=== PATIENT | female | born 1975 | race Caucasian/White ===

== ENCOUNTER 2016-11-02 11:13 | Emergency (ER) | payer MEDICAID ==
[2016-11-02 11:44] VITALS: BP 147/93
--- NOTE | 2016-11-02 12:10 | EDM.PDOC ---
ED HPI GENERAL MEDICAL PROBLEM - General Chief Complaint: Neck Problem Stated Complaint: BULGING DISKS IN BACK/NUMBNESS IN HAND/ARM Time Seen by Provider: 11/02/16 11:30 Source of Information: Reports: Patient History Limitations: Reports: No Limitations - History of Present Illness INITIAL COMMENTS - FREE TEXT/NARRATIVE: History of present illness: [41-year-old female presenting to the emergency room with a history of having lived in [place] and being worked up in 2 days for a bulging cervical disc C5-C6 with radiculopathy down the right arm with progressive weakness and numbness and tingling. She is apparently supposed to be set up for some sort of an injection but she has not been back from them yet this to when that would take place. If that does not work then they're going to consider doing surgery for her. She is presenting here with increasing pain stating that she is not on any pain medications or any medications at all. I've tried to access the [place] prescription monitoring program to see if I can do anything from there but there is a problem with being able to access that program right now. She has been on gabapentin in the past for chronic pancreatitis. She's had no fevers or chills cough cold symptoms she's not any chest pain or shortness of breath.] Review of systems: As per history of present illness and below otherwise all systems reviewed and negative. Past medical history: As per history of present illness and as reviewed below otherwise noncontributory. Surgical history: As per history of present illness and as reviewed below otherwise noncontributory. Social history: No reported history of drug or alcohol abuse. Family history: As per history of present illness and as reviewed below otherwise noncontributory. Physical exam: HEENT: Atraumatic normocephalic. She does have a black eye on the right though with some ecchymoses about the right sigala. Dates she just fell recently. Pupils are equal round reactive to light extraocular movements are intact. Lungs: Clear to auscultation, breath sounds equal bilaterally, chest nontender. Heart: S1S2, regular, negative for clicks, rubs, or JVD. Abdomen: Soft, nondistended, nontender. Negative for masses or hepatosplenomegaly. Negative for costovertebral tenderness. Pelvis: Stable nontender. Genitourinary: Deferred. Rectal: Deferred. Extremities: Atraumatic, negative for cords or calf pain. Neurovascular unremarkable. Neuro: Awake, alert, oriented. In attempting to examine her upper extremities and testing the strength of her right arm as compared to her left arm there is obvious weakness but I suspect and I'm worried that she is feigning this. Diagnostics: [] Therapeutics: [] Impression: [By history she has disc disease C5-C6 with radiculopathy down the right arm.] Plan: [I'm not comfortable providing her with any narcotics I'm providing her with gabapentin 300 mg 1 by mouth 3 times a day #30 with no refills. She is moving to the area and needs to establish care with a physician here. She also needs to be able to follow-up with the physicians in [place] that she was working with this far as the injection and possible surgery if indeed this is a problem that she has.] Definitive disposition and diagnosis as appropriate pending reevaluation and review of above. Right Arm Pain Score (Numeric/FACES): 9 - Related Data Allergies Allergy/AdvReac Type Severity Reaction Status Date / Time ketorolac tromethamine Allergy Unknown Cannot Verified 05/23/15 21:51 [From Toradol] Remember fentanyl Allergy Hives Verified 05/23/15 21:51 meperidine HCl [From Demerol] Allergy Itching Verified 05/23/15 21:51 morphine Allergy Itching Verified 05/23/15 21:51 propoxyphene Allergy Itching Verified 05/23/15 21:51 tramadol Allergy Hives Verified 05/23/15 21:51 cyclobenzaprine HCl AdvReac Vomiting Verified 05/23/15 21:51 [From Flexeril] hydromorphone HCl AdvReac Itching Verified 05/23/15 21:51 [From Dilaudid] Home Meds: Home Meds Zolpidem [Ambien] 10 mg PO BEDTIME PRN 05/16/13 [History] clonazePAM [Clonazepam] 1 mg PO BEDTIME 05/16/13 [History] rOPINIRole [Requip] 2 mg PO BEDTIME 05/16/13 [History] Omeprazole [Prilosec] 20 mg PO DAILY 08/05/13 [History] Ondansetron [Zofran] 4 mg PO Q8H PRN 08/05/13 [History] Ranitidine [Zantac] 150 mg PO DAILY 12/12/14 [History] oxyCODONE 5 mg PO Q4H 12/12/14 [History] Past Medical History Cardiovascular History: Reports: [place] Gastrointestinal History: Reports: GERD, Irritable Bowel Syndrome, Pancreatitis , Other (See Below) Other Gastrointestinal History: colectomy Genitourinary History: Reports: Pyelonephritis 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 Neurological History: Reports: Migraines, Seizure Psychiatric History: Reports: ADHD, Anxiety, Bipolar, Depression, Mood Swings, PTSD, Schizophrenia Endocrine/Metabolic History: Reports: Hyperthyroidism - Past Surgical History GI Surgical History: Reports: Cholecystectomy, Colonoscopy Social & Family History - Family History Cardiac: Reports: Hypertension, [place] - Tobacco Use Smoking Status *Q: Current Every Day Smoker Years of Tobacco use: 20 Packs/Tins Daily: 0.5 Used Tobacco, but Quit: No Month Tobacco Last Used: 24 Second Hand Smoke Exposure: Yes - Caffeine Use Caffeine Use: Reports: None - Alcohol Use Days Per Week of Alcohol Use: 0 - Recreational Drug Use Recreational Drug Use: No Drug Use in Last 12 Months: No Recreational Drug Type: Reports: Cocaine, Other (see below) (pt has chronic prescription narcotic use hx) Recreational Drug Use Frequency: Not Used In Over 1 Year Recreational Drug Last Use: 13yrs ED ROS GENERAL - Review of Systems Review Of Systems: ROS reveals no pertinent complaints other than HPI. ED EXAM, UPPER BACK/NECK PAIN - Physical Exam Exam: See Below Course - Vital Signs Last Recorded V/S: Last Vital Signs Temp 35.9 C 11/02/16 11:40 Pulse 73 11/02/16 11:40 Resp 14 11/02/16 11:40 BP 147/93 H 11/02/16 11:40 Pulse Ox 94 L 11/02/16 11:40 Departure - Departure Time of Disposition: 12:09 Disposition: Home, Self-Care 01 Condition: Fair Clinical Impression: Cervical radiculopathy - Discharge Information Forms: ED Department Discharge Additional Instructions: Please make an appointment seen in clinic as soon as possible so that you can get reestablished with the medical community here and [place] your care with the physicians that were taking care of you in [place].
== END 2016-11-02 12:25 | disposition home or self-care (01) ==
LOC: JP.ED 11:13
DX: M50.122 Cervical disc disorder at C5-C6 level with radiculopathy (principal); K21.9 Gastro-esophageal reflux disease without esophagitis; I25.2 Old myocardial infarction; F31.9 Bipolar disorder, unspecified; F90.9 Attention-deficit hyperactivity disorder, unspecified type; F41.9 Anxiety disorder, unspecified; F17.210 Nicotine dependence, cigarettes, uncomplicated; E05.90 Thyrotoxicosis, unspecified without thyrotoxic crisis or storm; Z88.8 Allergy status to other drugs, medicaments and biological substances; Z79.899 Other long term (current) drug therapy; Z90.49 Acquired absence of other specified parts of digestive tract
CPT/HCPCS: 99283

== ENCOUNTER 2017-01-04 11:45 | Emergency (ER) | payer MEDICAID ==
[2017-01-04 12:18] VITALS: BP 127/89
[2017-01-04] MEDS ORDERED: Lidocaine 2% 20 ML MDV INFILT ONE (12:26)
[2017-01-04] MEDS ORDERED: Acetaminophen/oxyCODONE 325-5 MG Tab PO ONE (12:57)
--- NOTE | 2017-01-04 13:34 | EDM.PDOC ---
ED HPI GENERAL MEDICAL PROBLEM - General Chief Complaint: Skin Complaint Stated Complaint: BOIL ON INSIDE RT LEG Time Seen by Provider: 01/04/17 13:00 - Related Data Allergies Allergy/AdvReac Type Severity Reaction Status Date / Time ketorolac tromethamine Allergy Unknown Cannot Verified 01/04/17 12:20 [From Toradol] Remember fentanyl Allergy Hives Verified 01/04/17 12:20 meperidine HCl [From Demerol] Allergy Itching Verified 01/04/17 12:20 morphine Allergy Itching Verified 01/04/17 12:20 propoxyphene Allergy Itching Verified 01/04/17 12:20 tramadol Allergy Hives Verified 01/04/17 12:20 cyclobenzaprine HCl AdvReac Vomiting Verified 01/04/17 12:20 [From Flexeril] hydromorphone HCl AdvReac Itching Verified 01/04/17 12:20 [From Dilaudid] Home Meds: Home Meds Zolpidem [Ambien] 10 mg PO BEDTIME PRN 05/16/13 [History] clonazePAM [Clonazepam] 1 mg PO BEDTIME 05/16/13 [History] rOPINIRole [Requip] 2 mg PO BEDTIME 05/16/13 [History] Omeprazole [Prilosec] 20 mg PO DAILY 08/05/13 [History] Ondansetron [Zofran] 4 mg PO Q8H PRN 08/05/13 [History] Ranitidine [Zantac] 150 mg PO DAILY 12/12/14 [History] Past Medical History Cardiovascular History: Reports: [place] Gastrointestinal History: Reports: GERD, Irritable Bowel Syndrome, Pancreatitis , Other (See Below) Other Gastrointestinal History: colectomy Genitourinary History: Reports: 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 Neurological History: Reports: Migraines, Seizure Psychiatric History: Reports: ADHD, Anxiety, Bipolar, Depression, Mood Swings, PTSD, Schizophrenia Endocrine/Metabolic History: Reports: Hyperthyroidism - Past Surgical History GI Surgical History: Reports: Cholecystectomy, Colonoscopy Social & Family History - Family History Cardiac: Reports: Hypertension, [place] - Tobacco Use Smoking Status *Q: Current Every Day Smoker Years of Tobacco use: 20 Packs/Tins Daily: 1 Used Tobacco, but Quit: No Month Tobacco Last Used: 24 Second Hand Smoke Exposure: Yes - Caffeine Use Caffeine Use: Reports: None - Alcohol Use Days Per Week of Alcohol Use: 0 - Recreational Drug Use Recreational Drug Use: No Drug Use in Last 12 Months: No Recreational Drug Type: Reports: Cocaine, Other (see below) (pt has chronic prescription narcotic use hx) Recreational Drug Use Frequency: Not Used In Over 1 Year Recreational Drug Last Use: 13yrs ED ROS GENERAL - Review of Systems Review Of Systems: See Below Constitutional: Denies: Fever, Chills, Malaise, Night Sweats : Reports: Pain, Other (no pain with defacation). Denies: Discharge, Dysuria Musculoskeletal: Reports: No Symptoms ED EXAM, SKIN/RASH Exam: See Below Exam Limited By: No Limitations General Appearance: Alert, Anxious Skin: Warm, Erythema, Piercing(s), Tattoo(s), Wound/Incision, Other (well localized abscess R inner thigh in a shaved area). No: Ecchymosis Location, Skin: No: Perirectal Associated features: Warmth, Tenderness, Wwelling, Induration, Inflammation. No : Lymphangitis Lymphatic: No Adenopathy Comments: 1 x 2 cut abscess between labia and proximal thigh, tense wall, aprox. 1 cm surrounding erythema. No extension into perirectal area. ED SKIN PROCEDURES - I&D Site: R perineaum/thigh Skin Prep: Chlorhexidine (Hibiciens) Local Anesthesia: Lidocaine: 2% Plain Local Anesthetic Volume: Other (15 ml) Area Incised With: 11 Blade Drainage: Purulent, Moderate Amount, Other (foul smelling) Probed to Break Up Loculations: Yes Packed With: None Sterile Dressinx4(s) Complications: No Progress/Comments: tolerated I&D well, wound cultures sent Course - Vital Signs Last Recorded V/S: Last Vital Signs Temp 35.8 C 01/04/17 12:27 Pulse 63 01/04/17 12:27 Resp 18 01/04/17 12:27 BP 127/89 01/04/17 12:27 Pulse Ox 100 01/04/17 12:27 - Orders/Labs/Meds Orders: Active Orders 24 hr Category Date Time Status CULTURE ANAEROBIC [RM] Routine Lab 01/04/17 13:48 Received CULTURE WOUND + SMEAR [RM] Stat Lab 01/04/17 13:29 Results Meds: Medications Discontinued Medications Generic Name Dose Route Start Last Admin Trade Name Howie PRN Reason Stop Dose Admin Lidocaine HCl 20 ml 01/04/17 12:26 01/04/17 13:13 Xylocaine 2% INFILT 01/04/17 12:27 20 ml ONETIME ONE Administration Oxycodone/Acetaminophen 3 tab 01/04/17 12:57 01/04/17 13:12 Percocet 325-5 Mg PO 01/04/17 12:58 2 tab ONETIME ONE Administration Departure - Departure Time of Disposition: 13:38 Disposition: DC/Tfer to [facility] [place] [facility] Clinical Impression: Abscess - Discharge Information Instructions: Abscess, [id number] Referrals: Micah Barnard MD [Primary Care Provider] - Forms: ED Department Discharge - My Orders Last 24 Hours: My Active Orders 01/04/17 13:29 CULTURE WOUND + SMEAR [RM] Stat 01/04/17 13:48 CULTURE ANAEROBIC [RM] Routine - Assessment/Plan Last 24 Hours: My Active Orders 01/04/17 13:29 CULTURE WOUND + SMEAR [RM] Stat 01/04/17 13:48 CULTURE ANAEROBIC [RM] Routine Assessment:: cutaneous abscess likely due to ingrown hair in shaved area. History complicated by chronic pancreatitis. Plan: QID wash out with soap and water. If no improvement in 72h, or if worse, return to ED or see PCP. Will provide a SHORT course of PO oxycodone, but anticipate that pain will not persist.
== END 2017-01-04 14:10 ==
LOC: JP.ED 11:45
DX: L02.415 Cutaneous abscess of right lower limb (principal); F17.210 Nicotine dependence, cigarettes, uncomplicated; I25.2 Old myocardial infarction; K21.9 Gastro-esophageal reflux disease without esophagitis; F90.9 Attention-deficit hyperactivity disorder, unspecified type; F41.9 Anxiety disorder, unspecified; F32.9 Major depressive disorder, single episode, unspecified; G43.909 Migraine, unspecified, not intractable, without status migrainosus; Z90.49 Acquired absence of other specified parts of digestive tract; Z79.899 Other long term (current) drug therapy; Z88.8 Allergy status to other drugs, medicaments and biological substances; Z88.5 Allergy status to narcotic agent; Z88.6 Allergy status to analgesic agent
CPT/HCPCS: 10060; 87070; 87075; 87077; 87205; 99284; A9270

== ENCOUNTER 2017-01-08 17:32 | Emergency (ER) | payer MEDICAID | END 2017-01-08 17:45 | disposition left against medical advice (07) | LOC: JP.ED 17:32 | DX: Z53.21 Procedure and treatment not carried out due to patient leaving prior to being seen by health care provider (principal) ==

== ENCOUNTER 2017-03-22 15:52 | Emergency (ER) | payer MEDICAID ==
[2017-03-22] MEDS ORDERED: LORazepam 2 MG/ML MDV IVPUSH ONE (15:55)
[2017-03-22] MEDS ORDERED: diphenhydrAMINE 50 MG/ML SDV IVPUSH ONE ×2 (15:55→17:02)
[2017-03-22] MEDS ORDERED: methylPREDNISolone Sodium Succinate 125 MG/2 ML SDV IVPUSH ONE (15:55)
--- NOTE | 2017-03-22 15:59 | EDM.PDOC ---
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 She also has anxiety and felt like she couldn't breathe, tried her inhaler and it didn't seem to be working so started panicking and became very pruritic and itchy. Onset: Sudden Duration: Hour(s): (Within the past hour) Location: Reports: Face, Neck, Chest, Generalized Quality: Reports: Burning, Other (Itching) Severity: Moderate Associated Symptoms: Reports: Shortness of Breath - Related Data Allergies Allergy/AdvReac Type Severity Reaction Status Date / Time ketorolac tromethamine Allergy Unknown Cannot Verified 01/04/17 12:20 [From Toradol] Remember fentanyl Allergy Hives Verified 01/04/17 12:20 meperidine HCl [From Demerol] Allergy Itching Verified 01/04/17 12:20 morphine Allergy Itching Verified 01/04/17 12:20 propoxyphene Allergy Itching Verified 01/04/17 12:20 tramadol Allergy Hives Verified 01/04/17 12:20 cyclobenzaprine HCl AdvReac Vomiting Verified 01/04/17 12:20 [From Flexeril] hydromorphone HCl AdvReac Itching Verified 01/04/17 12:20 [From Dilaudid] Home Meds: Home Meds Zolpidem [Ambien] 10 mg PO BEDTIME PRN 05/16/13 [History] clonazePAM [Clonazepam] 1 mg PO BEDTIME 05/16/13 [History] rOPINIRole [Requip] 2 mg PO BEDTIME 05/16/13 [History] Ranitidine [Zantac] 150 mg PO DAILY 12/12/14 [History] Past Medical History Cardiovascular History: Reports: [place] Gastrointestinal History: Reports: GERD, Irritable Bowel Syndrome, Pancreatitis , Other (See Below) Other Gastrointestinal History: colectomy Genitourinary History: Reports: Pyelonephritis 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 Neurological History: Reports: Migraines, Seizure Psychiatric History: Reports: ADHD, Anxiety, Bipolar, Depression, Mood Swings, PTSD, Schizophrenia Endocrine/Metabolic History: Reports: Hyperthyroidism - Past Surgical History GI Surgical History: Reports: Cholecystectomy, Colonoscopy Social & Family History - Family History Cardiac: Reports: Hypertension, [place] - Tobacco Use Smoking Status *Q: Current Every Day Smoker Years of Tobacco use: 20 Packs/Tins Daily: 1 Used Tobacco, but Quit: No Month Tobacco Last Used: 24 Second Hand Smoke Exposure: Yes - Caffeine Use Caffeine Use: Reports: None - Alcohol Use Days Per Week of Alcohol Use: 0 - Recreational Drug Use Recreational Drug Use: No Drug Use in Last 12 Months: No Recreational Drug Type: Reports: Cocaine, Other (see below) (pt has chronic prescription narcotic use hx) Recreational Drug Use Frequency: Not Used In Over 1 Year Recreational Drug Last Use: 13yrs ED ROS GENERAL - Review of Systems Review Of Systems: See Below Constitutional: Denies: Fever, Chills Respiratory: Reports: Shortness of Breath Cardiovascular: Reports: Chest Pain GI/Abdominal: Denies: Abdominal Pain, Nausea : Reports: No Symptoms Musculoskeletal: Reports: No Symptoms Skin: Reports: Pruritis, Rash Neurological: Reports: Headache Psychiatric: Reports: Anxiety ED EXAM, GENERAL - Physical Exam Exam: See Below Exam Limited By: No Limitations General Appearance: Alert, Anxious, Mild Distress (Very agitated on arrival, scratching profusely) Eye Exam: Bilateral Eye: EOMI, Other (Patient has some very slight periorbital edema and erythema) Ears: Normal External Exam Throat/Mouth: Normal Inspection Neck: Other (Blanching hyperemic rash across the upper chest and neck) Respiratory/Chest: No Respiratory Distress, Lungs Clear Cardiovascular: Regular Rate, Rhythm GI/Abdominal: Non-Tender Extremities: Other (Diffuse hyperemic rash, blanching with several excoriation paez from scratching especially in the left leg and right arm) Skin Exam: Erythema, Rash Course - Vital Signs Last Recorded V/S: Last Vital Signs Temp 97.9 F 03/22/17 17:00 Pulse 98 03/22/17 17:00 Resp 23 H 03/22/17 17:00 BP 130/85 03/22/17 17:00 Pulse Ox 95 03/22/17 17:00 - Orders/Labs/Meds Orders: Active Orders 24 hr Category Date Time Status Saline Lock Insert [OM.PC] Routine Oth 03/22/17 15:55 Ordered Meds: Medications Discontinued Medications Generic Name Dose Route Start Last Admin Trade Name Howie PRN Reason Stop Dose Admin Acetaminophen 1,000 mg 03/22/17 16:47 03/22/17 16:53 Tylenol Extra Strength PO 03/22/17 16:48 1,000 mg ONETIME ONE Administration Diphenhydramine HCl 25 mg 03/22/17 15:55 03/22/17 16:06 Benadryl IVPUSH 03/22/17 15:56 25 mg ONETIME ONE Administration Diphenhydramine HCl 25 mg 03/22/17 17:02 03/22/17 17:07 Benadryl IVPUSH 03/22/17 17:03 25 mg ONETIME ONE Administration Lorazepam 1 mg 03/22/17 15:55 03/22/17 16:06 Ativan IVPUSH 03/22/17 15:56 1 mg ONETIME ONE Administration Methylprednisolone Sodium Succinate 125 mg 03/22/17 15:55 03/22/17 16:06 Solu-Medrol IVPUSH 03/22/17 15:56 125 mg ONETIME ONE Administration Sodium Chloride 10 ml 03/22/17 15:55 03/22/17 17:07 Saline Flush FLUSH 10 ml ASDIRECTED PRN Administration Keep Vein Open - Re-Assessments/Exams Free Text/Narrative Re-Assessment/Exam: 03/22/17 17:31 Patient was reassured that her lungs were clear, vitals were stable and her symptoms can be treated. She did start to calm down. An IV was started and she was given 25 mg of Benadryl and 1 mg of Ativan IV. This was followed with 125 mg of Solu-Medrol. After 20 minutes her respiratory rate improved and her rash started to resolve but she developed a headache and felt like the itching was starting to worsen so an additional 25 mg of Benadryl IV along with 1000 mg of oral acetaminophen was given. Patient rested quietly for 45 minutes and was discharged. Oral prednisone was given to take as an outpatient 50 mg daily for the next one to 5 days if symptoms persist. She can return anytime if worsening or concerns. She can also continue Benadryl every 4-6 hours. Departure - Departure Time of Disposition: 18:37 Disposition: Home, Self-Care 01 Condition: Good Clinical Impression: Anxiety Acute allergic reaction Qualifiers: Encounter type: initial encounter Qualified Code(s): T78.40XA - Allergy, unspecified, initial encounter - Discharge Information Instructions: Allergies Referrals: PCP,None [Primary Care Provider] - Forms: ED Department Discharge Care Plan Goals: Repeat Benadryl 25-50 mg every 4-6 hours if needed. Take 50 mg or 5 pills of prednisone with food daily until symptoms are completely resolved up to 5 days. Return or recheck in the next 2-3 days if not improving satisfactorily. - My Orders Last 24 Hours: My Active Orders 03/22/17 15:55 Saline Lock Insert [OM.PC] Routine - Assessment/Plan Last 24 Hours: My Active Orders 03/22/17 15:55 Saline Lock Insert [OM.PC] Routine
[2017-03-22] MEDS: Sodium Chloride 0.9% 10 ML Syringe FLUSH PRN ×2 (16:07→17:07)
[2017-03-22] MEDS ORDERED: Acetaminophen 500 MG Tab PO ONE (16:47)
[2017-03-22 17:01] VITALS: BP 130/85
== END 2017-03-22 18:37 | disposition home or self-care (01) ==
LOC: JP.ED 15:52
DX: T78.40XA Allergy, unspecified, initial encounter (principal); F41.9 Anxiety disorder, unspecified; F17.210 Nicotine dependence, cigarettes, uncomplicated; Z88.5 Allergy status to narcotic agent; Z88.6 Allergy status to analgesic agent; Z88.8 Allergy status to other drugs, medicaments and biological substances
CPT/HCPCS: 96374; 96375; 96376; 99283; 99284; A9270; J1200; J2060; J2930; J7050

== ENCOUNTER 2017-03-24 17:06 | Emergency (ER) | payer MEDICAID ==
[2017-03-24] MEDS ORDERED: LORazepam 2 MG/ML MDV IVPUSH ONE ×2 (17:28→17:53)
[2017-03-24] MEDS ORDERED: Lactated Ringers 1,000 ML IV ONE (17:28)
--- NOTE | 2017-03-24 17:33 | EDM.PDOC ---
<Panfilo Stuart - Last Filed: 03/24/17 18:56> ED HPI GENERAL MEDICAL PROBLEM - General Chief Complaint: General Stated Complaint: SEIZURE ACTIVITY Time Seen by Provider: 03/24/17 17:20 Source of Information: Reports: Patient, Family, Old Records, RN History Limitations: Reports: Other (patient having a hard time communicating.) - History of Present Illness INITIAL COMMENTS - FREE TEXT/NARRATIVE: 41 yo female with a pHx of chronic neck pain presents with shaking, neck pain, and CARLSON. Had been having mild shaking intermittently for a couple days. Much worse since noon today. Fell last night after leaving the ER and may have re- injured her neck. Now can't stop shaking. Hard for her to speak. No known fever. Was at work when this began today. Onset: Today Onset Date: 03/24/17 Onset Time: 12:00 Duration: Hour(s): Location: Reports: Generalized Quality: Reports: Ache Severity: Moderate Improves with: Reports: None Worsens with: Reports: Other (? time) Context: Reports: Other (Hx of neck pain, fall last night. No hx of seizure. ) Associated Symptoms: Reports: Headaches, Seizure (generalized tremoring), Other (sweaty, speach difficulty.). 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) - Related Data Allergies Allergy/AdvReac Type Severity Reaction Status Date / Time ketorolac tromethamine Allergy Unknown Cannot Verified 01/04/17 12:20 [From Toradol] Remember fentanyl Allergy Hives Verified 01/04/17 12:20 meperidine HCl [From Demerol] Allergy Itching Verified 01/04/17 12:20 morphine Allergy Itching Verified 01/04/17 12:20 propoxyphene Allergy Itching Verified 01/04/17 12:20 tramadol Allergy Hives Verified 01/04/17 12:20 cyclobenzaprine HCl AdvReac Vomiting Verified 01/04/17 12:20 [From Flexeril] hydromorphone HCl AdvReac Itching Verified 01/04/17 12:20 [From Dilaudid] Home Meds: Home Meds Zolpidem [Ambien] 10 mg PO BEDTIME PRN 01/19/14 [History] clonazePAM [Clonazepam] 1 mg PO BEDTIME 05/16/13 [History] rOPINIRole [Requip] 2 mg PO BEDTIME 05/16/13 [History] Ranitidine [Zantac] 150 mg PO DAILY 12/12/14 [History] Gabapentin [Neurontin] 300 mg PO TID 03/24/17 [History] LORazepam 1 mg PO TID PRN #10 tablet 03/24/17 [Rx] oxyCODONE 5 mg PO Q4H PRN #8 tab 03/24/17 [Rx] Past Medical History HEENT History: Reports: Otitis Media, Sinusitis Cardiovascular History: Reports: [place] Respiratory History: Reports: Asthma Gastrointestinal History: Reports: GERD, Irritable Bowel Syndrome, Pancreatitis , Other (See Below) Other Gastrointestinal History: colectomy Genitourinary History: Reports: Pyelonephritis 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 Neurological History: Reports: Migraines, Seizure Psychiatric History: Reports: ADHD, Anxiety, Bipolar, Depression, Mood Swings, PTSD, Schizophrenia Endocrine/Metabolic History: Reports: Hyperthyroidism Dermatologic History: Reports: Eczema - Infectious Disease History Infectious Disease History: Reports: Chicken Pox - Past Surgical History HEENT Surgical History: Reports: Tonsillectomy GI Surgical History: Reports: Cholecystectomy, Colonoscopy Social & Family History - Family History Cardiac: Reports: Hypertension, [place] - Tobacco Use Smoking Status *Q: Current Every Day Smoker Years of Tobacco use: 30 Packs/Tins Daily: 1 Used Tobacco, but Quit: No Month Tobacco Last Used: 24 Second Hand Smoke Exposure: Yes - Caffeine Use Caffeine Use: Reports: Coffee, Energy Drinks - Alcohol Use Days Per Week of Alcohol Use: 0 - Recreational Drug Use Recreational Drug Use: No Drug Use in Last 12 Months: No Recreational Drug Type: Reports: Cocaine, Other (see below) (pt has chronic prescription narcotic use hx) Recreational Drug Use Frequency: Not Used In Over 1 Year Recreational Drug Last Use: 13yrs ED ROS GENERAL - Review of Systems Review Of Systems: See Below Constitutional: Reports: Diaphoresis. Denies: Fever HEENT: Reports: No Symptoms Respiratory: Reports: No Symptoms Cardiovascular: Reports: No Symptoms Endocrine: Reports: No Symptoms GI/Abdominal: Reports: No Symptoms : Reports: No Symptoms Musculoskeletal: Reports: Neck Pain Skin: Reports: Diaphoresis Neurological: Reports: Headache Psychiatric: Reports: No Symptoms ED EXAM, GENERAL - Physical Exam Exam: See Below Exam Limited By: No Limitations General Appearance: Alert, Moderate Distress Eye Exam: Bilateral Eye: Normal Inspection Ears: Normal External Exam, Normal Canal, Hearing Grossly Normal, Normal TMs Ear Exam: Bilateral Ear: Auricle Normal, Canal Normal, TM normal Nose: Normal Inspection Throat/Mouth: Normal Inspection, Normal Lips, Normal Oropharynx, Normal Voice, No Airway Compromise Head: Atraumatic, Normocephalic Neck: Normal Inspection Respiratory/Chest: No Respiratory Distress, Lungs Clear, Normal Breath Sounds, No Accessory Muscle Use Cardiovascular: Regular Rate, Rhythm, Tachycardia GI/Abdominal: Normal Bowel Sounds, Soft, Non-Tender, No Distention Back Exam: Normal Inspection. No: CVA Tenderness (R), CVA Tenderness (L) Extremities: Normal Inspection, Normal Range of Motion, Non-Tender, No Pedal Edema Neurological: Alert, Other (constant total body tremors, speech difficult to understand. ) Skin Exam: Warm, Intact, Normal Color, No Rash, Diaphoretic (sweaty). No: Erythema, Jaundice, Mottled, Pallor, Petechiae, Rash, Wound/Incision Lymphatic: No Adenopathy Course - Vital Signs Text/Narrative:: Anesthesia called for an LP at 1850h Last Recorded V/S: Last Vital Signs Temp 37.1 C 03/24/17 17:21 Pulse 100 03/24/17 22:25 Resp 18 03/24/17 22:25 BP 127/68 03/24/17 22:25 Pulse Ox 95 03/24/17 22:25 - Orders/Labs/Meds Orders: Active Orders 24 hr Category Date Time Status Cervical Spine wo Cont [CT] Stat Exams 03/24/17 17:35 Taken Head wo Cont [CT] Stat Exams 03/24/17 17:31 Taken CULTURE BLOOD [BC] Stat Lab 03/24/17 18:00 Received CULTURE BLOOD [BC] Stat Lab 03/24/17 18:10 Received CULTURE CSF + SMEAR [RM] Stat Lab 03/24/17 20:07 Results Labs: Laboratory Tests 03/24/17 03/24/17 03/24/17 Range/Units 17:40 17:40 17:40 WBC 19.3 H (4.5-11.0) K/uL RBC 4.73 (3.30-5.50) M/uL Hgb 14.3 (12.0-15.0) g/dL Hct 43.3 (36.0-48.0) % MCV 92 (80-98) fL MCH 30 (27-31) pg MCHC 33 (32-36) % Plt Count 364 (150-400) K/uL Sodium 142 (140-148) mmol/L Potassium 4.2 (3.6-5.2) mmol/L Chloride 104 (100-108) mmol/L Carbon Dioxide 23 (21-32) mmol/L Anion Gap 15.1 H (5.0-14.0) mmol/L BUN 26 H (7-18) mg/dL Creatinine 1.1 H (0.6-1.0) mg/dL Est Cr Clr Drug Dosing 62.41 mL/min Estimated GFR (MDRD) 55 L (>60) Glucose 164 H (74-106) mg/dL Lactic Acid 3.1 H (0.4-2.0) mmol/L Calcium 9.5 (8.5-10.1) mg/dL Total Bilirubin (0.2-1.0) mg/dL Direct Bilirubin (0.0-0.2) mg/dL Indirect Bilirubin AST (15-37) U/L ALT (12-78) U/L Alkaline Phosphatase (46-116) U/L Total Protein (6.4-8.2) g/dL Albumin (3.4-5.0) g/dL Globulin (2.3-3.5) g/dL Albumin/Globulin Ratio (1.2-2.2) Urine Color Urine Appearance Urine pH (4.5-8.0) Ur Specific [place] (1.008-1.030) Urine Protein (NEGATIVE) mg/dL Urine Glucose (UA) (NEGATIVE) mg/dL Urine Ketones (NEGATIVE) mg/dL Urine Occult Blood (NEGATIVE) Urine Nitrite (NEGATIVE) Urine Bilirubin (NEGATIVE) Urine Urobilinogen (NORMAL) mg/dL Ur Leukocyte Esterase (NEGATIVE) Urine RBC (0-5) Urine WBC (0-5) Ur Epithelial Cells Amorphous Sediment Urine Bacteria Urine Mucus CSF Tube Number CSF Volume mls CSF Appearance (CLEAR) CSF Color (COLORLESS) CSF WBC (0-5) /ul CSF RBC (0-0) /ul CSF Mononuclear Cells (54-100) % CSF Polymorphonuclear (0-7) % CSF Glucose (40-70) mg/dL CSF Total Protein (15-45) mg/dL Urine Opiates Screen (NEGATIVE) Ur Oxycodone Screen (NEGATIVE) Urine Methadone Screen (NEGATIVE) Ur Propoxyphene Screen (NEGATIVE) Ur Barbiturates Screen (NEGATIVE) Ur Tricyclics Screen (NEGATIVE) Ur Phencyclidine Scrn (NEGATIVE) Ur Amphetamine Screen (NEGATIVE) U Methamphetamines Scrn (NEGATIVE) Urine MDMA Screen (NEGATIVE) U Benzodiazepines Scrn (NEGATIVE) U Cocaine Metab Screen (NEGATIVE) U Marijuana (THC) Screen (NEGATIVE) Ethyl Alcohol mg/dL 03/24/17 03/24/17 03/24/17 Range/Units 17:40 18:24 18:24 WBC (4.5-11.0) K/uL RBC (3.30-5.50) M/uL Hgb (12.0-15.0) g/dL Hct (36.0-48.0) % MCV (80-98) fL MCH (27-31) pg MCHC (32-36) % Plt Count (150-400) K/uL Sodium (140-148) mmol/L Potassium (3.6-5.2) mmol/L Chloride (100-108) mmol/L Carbon Dioxide (21-32) mmol/L Anion Gap (5.0-14.0) mmol/L BUN (7-18) mg/dL Creatinine (0.6-1.0) mg/dL Est Cr Clr Drug Dosing mL/min Estimated GFR (MDRD) (>60) Glucose (74-106) mg/dL Lactic Acid (0.4-2.0) mmol/L Calcium (8.5-10.1) mg/dL Total Bilirubin (0.2-1.0) mg/dL Direct Bilirubin (0.0-0.2) mg/dL Indirect Bilirubin AST (15-37) U/L ALT (12-78) U/L Alkaline Phosphatase (46-116) U/L Total Protein (6.4-8.2) g/dL Albumin (3.4-5.0) g/dL Globulin (2.3-3.5) g/dL Albumin/Globulin Ratio (1.2-2.2) Urine Color Yellow Urine Appearance Clear Urine pH 5.0 (4.5-8.0) Ur Specific [place] 1.030 (1.008-1.030) Urine Protein Negative (NEGATIVE) mg/dL Urine Glucose (UA) Normal (NEGATIVE) mg/dL Urine Ketones Negative (NEGATIVE) mg/dL Urine Occult Blood Negative (NEGATIVE) Urine Nitrite Negative (NEGATIVE) Urine Bilirubin Negative (NEGATIVE) Urine Urobilinogen Normal (NORMAL) mg/dL Ur Leukocyte Esterase Negative (NEGATIVE) Urine RBC 0-5 (0-5) Urine WBC 0-5 (0-5) Ur Epithelial Cells Moderate Amorphous Sediment Not seen Urine Bacteria Moderate Urine Mucus Few CSF Tube Number CSF Volume mls CSF Appearance (CLEAR) CSF Color (COLORLESS) CSF WBC (0-5) /ul CSF RBC (0-0) /ul CSF Mononuclear Cells (54-100) % CSF Polymorphonuclear (0-7) % CSF Glucose (40-70) mg/dL CSF Total Protein (15-45) mg/dL Urine Opiates Screen Negative (NEGATIVE) Ur Oxycodone Screen Negative (NEGATIVE) Urine Methadone Screen Negative (NEGATIVE) Ur Propoxyphene Screen Negative (NEGATIVE) Ur Barbiturates Screen Negative (NEGATIVE) Ur Tricyclics Screen Negative (NEGATIVE) Ur Phencyclidine Scrn Negative (NEGATIVE) Ur Amphetamine Screen Negative (NEGATIVE) U Methamphetamines Scrn Negative (NEGATIVE) Urine MDMA Screen Negative (NEGATIVE) U Benzodiazepines Scrn Positive H (NEGATIVE) U Cocaine Metab Screen Negative (NEGATIVE) U Marijuana (THC) Screen Negative (NEGATIVE) Ethyl Alcohol < 3 mg/dL 03/24/17 03/24/17 03/24/17 Range/Units 20:00 20:07 20:07 WBC (4.5-11.0) K/uL RBC (3.30-5.50) M/uL Hgb (12.0-15.0) g/dL Hct (36.0-48.0) % MCV (80-98) fL MCH (27-31) pg MCHC (32-36) % Plt Count (150-400) K/uL Sodium (140-148) mmol/L Potassium (3.6-5.2) mmol/L Chloride (100-108) mmol/L Carbon Dioxide (21-32) mmol/L Anion Gap (5.0-14.0) mmol/L BUN (7-18) mg/dL Creatinine (0.6-1.0) mg/dL Est Cr Clr Drug Dosing mL/min Estimated GFR (MDRD) (>60) Glucose (74-106) mg/dL Lactic Acid (0.4-2.0) mmol/L Calcium (8.5-10.1) mg/dL Total Bilirubin 0.4 D (0.2-1.0) mg/dL Direct Bilirubin 0.14 (0.0-0.2) mg/dL Indirect Bilirubin 0.26 AST 48 H D (15-37) U/L ALT 521 H (12-78) U/L Alkaline Phosphatase 56 (46-116) U/L Total Protein 7.6 (6.4-8.2) g/dL Albumin 4.1 (3.4-5.0) g/dL Globulin 3.5 (2.3-3.5) g/dL Albumin/Globulin Ratio 1.2 (1.2-2.2) Urine Color Urine Appearance Urine pH (4.5-8.0) Ur Specific [place] (1.008-1.030) Urine Protein (NEGATIVE) mg/dL Urine Glucose (UA) (NEGATIVE) mg/dL Urine Ketones (NEGATIVE) mg/dL Urine Occult Blood (NEGATIVE) Urine Nitrite (NEGATIVE) Urine Bilirubin (NEGATIVE) Urine Urobilinogen (NORMAL) mg/dL Ur Leukocyte Esterase (NEGATIVE) Urine RBC (0-5) Urine WBC (0-5) Ur Epithelial Cells Amorphous Sediment Urine Bacteria Urine Mucus CSF Tube Number 2 CSF Volume 2 mls CSF Appearance Clear (CLEAR) CSF Color Colorless (COLORLESS) CSF WBC 1 (0-5) /ul CSF RBC 1 H (0-0) /ul CSF Mononuclear Cells 1 L (54-100) % CSF Polymorphonuclear 0 (0-7) % CSF Glucose 82 H (40-70) mg/dL CSF Total Protein 32.4 (15-45) mg/dL Urine Opiates Screen (NEGATIVE) Ur Oxycodone Screen (NEGATIVE) Urine Methadone Screen (NEGATIVE) Ur Propoxyphene Screen (NEGATIVE) Ur Barbiturates Screen (NEGATIVE) Ur Tricyclics Screen (NEGATIVE) Ur Phencyclidine Scrn (NEGATIVE) Ur Amphetamine Screen (NEGATIVE) U Methamphetamines Scrn (NEGATIVE) Urine MDMA Screen (NEGATIVE) U Benzodiazepines Scrn (NEGATIVE) U Cocaine Metab Screen (NEGATIVE) U Marijuana (THC) Screen (NEGATIVE) Ethyl Alcohol mg/dL 03/24/17 03/24/17 Range/Units 22:00 22:00 WBC (4.5-11.0) K/uL RBC (3.30-5.50) M/uL Hgb (12.0-15.0) g/dL Hct (36.0-48.0) % MCV (80-98) fL MCH (27-31) pg MCHC (32-36) % Plt Count (150-400) K/uL Sodium 141 (140-148) mmol/L Potassium 4.0 (3.6-5.2) mmol/L Chloride 105 (100-108) mmol/L Carbon Dioxide 20 L (21-32) mmol/L Anion Gap 20.0 H (5.0-14.0) mmol/L BUN 21 H (7-18) mg/dL Creatinine 1.0 (0.6-1.0) mg/dL Est Cr Clr Drug Dosing 68.65 mL/min Estimated GFR (MDRD) > 60 (>60) Glucose 213 H (74-106) mg/dL Lactic Acid 2.6 H (0.4-2.0) mmol/L Calcium 8.5 (8.5-10.1) mg/dL Total Bilirubin (0.2-1.0) mg/dL Direct Bilirubin (0.0-0.2) mg/dL Indirect Bilirubin AST (15-37) U/L ALT (12-78) U/L Alkaline Phosphatase (46-116) U/L Total Protein (6.4-8.2) g/dL Albumin (3.4-5.0) g/dL Globulin (2.3-3.5) g/dL Albumin/Globulin Ratio (1.2-2.2) Urine Color Urine Appearance Urine pH (4.5-8.0) Ur Specific [place] (1.008-1.030) Urine Protein (NEGATIVE) mg/dL Urine Glucose (UA) (NEGATIVE) mg/dL Urine Ketones (NEGATIVE) mg/dL Urine Occult Blood (NEGATIVE) Urine Nitrite (NEGATIVE) Urine Bilirubin (NEGATIVE) Urine Urobilinogen (NORMAL) mg/dL Ur Leukocyte Esterase (NEGATIVE) Urine RBC (0-5) Urine WBC (0-5) Ur Epithelial Cells Amorphous Sediment Urine Bacteria Urine Mucus CSF Tube Number CSF Volume mls CSF Appearance (CLEAR) CSF Color (COLORLESS) CSF WBC (0-5) /ul CSF RBC (0-0) /ul CSF Mononuclear Cells (54-100) % CSF Polymorphonuclear (0-7) % CSF Glucose (40-70) mg/dL CSF Total Protein (15-45) mg/dL Urine Opiates Screen (NEGATIVE) Ur Oxycodone Screen (NEGATIVE) Urine Methadone Screen (NEGATIVE) Ur Propoxyphene Screen (NEGATIVE) Ur Barbiturates Screen (NEGATIVE) Ur Tricyclics Screen (NEGATIVE) Ur Phencyclidine Scrn (NEGATIVE) Ur Amphetamine Screen (NEGATIVE) U Methamphetamines Scrn (NEGATIVE) Urine MDMA Screen (NEGATIVE) U Benzodiazepines Scrn (NEGATIVE) U Cocaine Metab Screen (NEGATIVE) U Marijuana (THC) Screen (NEGATIVE) Ethyl Alcohol mg/dL Meds: Medications Discontinued Medications Generic Name Dose Route Start Last Admin Trade Name Freq PRN Reason Stop Dose Admin Diphenhydramine HCl 50 mg 03/24/17 20:51 03/24/17 21:14 Benadryl IVPUSH 03/24/17 20:52 50 mg ONETIME ONE Administration Lactated Ringer's 1,000 mls @ 1,000 mls/hr 03/24/17 17:28 03/24/17 17:47 Ringers, Lactated IV 03/24/17 18:27 1,000 mls/hr BOLUS ONE Administration Ceftriaxone Sodium 2 gm/ 50 mls @ 100 mls/hr 03/24/17 17:49 03/24/17 18:34 Sodium Chloride IV 03/24/17 18:18 100 mls/hr ONETIME ONE Administration Sodium Chloride 1,000 mls @ 1,000 mls/hr 03/24/17 18:15 03/24/17 19:23 Normal Saline IV 1,000 mls/hr ASDIRECTED JOSE M Administration Acetaminophen 1,000 mg/ Premix 100 mls @ 400 mls/hr 03/24/17 18:37 03/24/17 18:57 IV 03/24/17 18:51 400 mls/hr NOW ONE Administration Sodium Chloride 1,000 mls @ 900 mls/hr 03/24/17 21:00 03/24/17 21:12 Normal Saline IV 900 mls/hr ASDIRECTED JOSE M Administration Lorazepam 1 mg 03/24/17 17:28 03/24/17 17:47 Ativan IVPUSH 03/24/17 17:29 1 mg ONETIME ONE Administration Lorazepam 1 mg 03/24/17 17:53 03/24/17 17:55 Ativan IVPUSH 03/24/17 17:54 1 mg ONETIME ONE Administration Morphine Sulfate 4 mg 03/24/17 20:51 03/24/17 21:16 Morphine IVPUSH 03/24/17 20:52 4 mg ONETIME ONE Administration Olanzapine 5 mg 03/24/17 22:37 03/24/17 23:04 Zyprexa PO 03/24/17 22:38 5 mg ONETIME ONE Administration Departure - Departure Disposition: Home, Self-Care 01 Clinical Impression: Chronic neck pain, Elevated ALT measurement, Tremors of nervous system Fall with injury Qualifiers: Encounter type: initial encounter Qualified Code(s): W19.XXXA - Unspecified fall, initial encounter - Discharge Information Prescriptions: LORazepam 1 mg PO TID PRN #10 tablet PRN Reason: cramps, tremors or spasms oxyCODONE 5 mg PO Q4H PRN #8 tab PRN Reason: moderate neck or head pain Instructions: Alanine Aminotransferase Test, Lumbar Puncture, Care After, Tremor Referrals: Micah Barnard MD [Primary Care Provider] - Forms: ED Department Discharge, ED Return to Work/School Form Additional Instructions: there are several concerns about your health that need further investigation. #1, chronic neck pain, made worse by your fall yesterday. you may need referral for further treatment and evaluation. #2 tremors or convulsions that are associated with your pain. these started after your neck injury in September, worse with a fall yesterday. Further evaluation might include referral to neurology. #3 elevated ALTs, one of the liver enzymes. Further testing for causes of elevated liver enzymes should be done if this has not been done already, if the liver nzymes remain elevated. for example testing for hepatitis. Sometimes medications can also cause elevated liver enzymes as can alcohol. #4. Tonight you had elevated lactate. This would suggest possible dehydration or infection, improved with intravenous fluids. Make sure you drink plenty of fluids.you also had elevated white count. Your blood count can be elevated for many reasons, possibly the prednisone your prescribed for the allergic reaction is contributing to this. This will need to be rechecked at some point. You are being prescribed medication for your tremors and pain tonight. This is for short-term use only. Make an appointment with your physician in the next week to get rechecked, to discuss these problems, and to get referrals as needed - My Orders Last 24 Hours: My Active Orders 03/24/17 20:07 CULTURE CSF + SMEAR [RM] Stat - Assessment/Plan Last 24 Hours: My Active Orders 03/24/17 20:07 CULTURE CSF + SMEAR [RM] Stat <Toni Padilla - Last Filed: 03/24/17 23:45> Course - Re-Assessments/Exams Free Text/Narrative Re-Assessment/Exam: 03/24/17 22:20 22.00 transferred to my care from Dr. Stuart, see note above 41-year-old female who presented to emergency because of tremors headache and neck pain. She fell at her friend's house where she's been staying temporarily at noon yesterday. She lost her balance was feeling dizzy missed the last few steps landed on some cultures at the bottom of stairs and landed on the floor. She was confused by head and it's unclear if she had she had loss of consciousness or even a head injury. However she did get sudden increase in neck and head pain. She went to sleep and when she woke up this morning she felt no better. Her fianc, who came in with her tonight, arrived home in the afternoon today and found her with "full-blown convulsions". No loss of consciousness with her tremors. These continued in emergency and were witnessed by the staff here. In addition she was noted to have tachycardia and elevated blood pressure. 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 She had taken package of bowel water and swallowed through the scanner and had immediate pain in her upper back, that radiated up to her neck.. The next morning she hadmore intense pain in her neck and back and started experiencing "convulsions". She was seen several times in emergency at [place]. Ultimately she did have an MRI of her neck and did have an injection in her neck as well. Apparently it was not felt to be a workers comp related claim. She was seen in emergency 2 days ago for an allergic type reaction or hayfever and since then she's felt unwell with which she describes as dizziness meaning feeling off balance. She is being treated with prednisone and with antihistamines. On evaluation in emergency tonight it was found that her white count was 19.3 versus 14.5 in January. She was given ceftriaxone IV Apart from her congestive symptoms from 2 days ago, there is no cough no urinary tract symptoms no nausea vomiting or diarrhea. Liver tests show elevated ELT at 521 mild elevation in AST at 48, these values were normal in January. She continues to complain of headache and neck pain She had received intravenous acetaminophen and lorazepam prior to my assessing her. CT of the head and of the neck were negative for acute changes. In addition she underwent lumbar puncture to evaluate her for possible infection , the results do not support the diagnosis of infection. When I assessed her she was alert and coherent and able to answer questions and follow directions. She did show some tremor which abated without treatment. She continues to have neck and back pain. The only other significant lab finding is of a lactate of 3.1 She did receive intravenous saline in emergency For headache and neck pain she received 4 morphine 4 mg and Benadryl 50 mg IV new discomfort across the low back, becoming more focal in the left low back. Zyprexa 5 mg by mouth for pain and discomfort in the help her rest Repeat lactate 2.6 there are several concerns about your health that need further investigation. #1, chronic neck pain, made worse by your fall yesterday. you may need referral for further treatment and evaluation. #2 tremors or convulsions that are associated with your pain. these started after your neck injury in September, worse with a fall yesterday. Further evaluation might include referral to neurology. #3 elevated ALTs, one of the liver enzymes. Further testing for causes of elevated liver enzymes should be done if this has not been done already, if the liver nzymes remain elevated. for example testing for hepatitis. Sometimes medications can also cause elevated liver enzymes as can alcohol. #4. Tonight you had elevated lactate. This would suggest possible dehydration or infection, improved with intravenous fluids. Make sure you drink plenty of fluids.you also had elevated white count. Your blood count can be elevated for many reasons, possibly the prednisone your prescribed for the allergic reaction is contributing to this. This will need to be rechecked at some point. You are being prescribed medication for your tremors and pain tonight. This is for short-term use only. Make an appointment with your physician in the next week to get rechecked, to discuss these problems, and to get referrals as needed 03/24/17 23:44 Departure - Departure Time of Disposition: 22:55 Condition: Fair
[2017-03-24] MEDS ORDERED: cefTRIAXone 2 GM in Sodium Chloride 0.9% 50 ML IV ONE (17:49)
[2017-03-24] MEDS ORDERED: Sodium Chloride 0.9% 1,000 ML IV SCH ×2 (18:15→21:00)
[2017-03-24] MEDS ORDERED: Acetaminophen 1,000 MG in Premix Bag 1 BAG IV ONE (18:37)
[2017-03-24] MEDS ORDERED: diphenhydrAMINE 50 MG/ML SDV IVPUSH ONE (20:51)
[2017-03-24] MEDS ORDERED: Morphine 4 MG/ML Syringe IVPUSH ONE (20:51)
[2017-03-24 22:26] VITALS: BP 127/68
[2017-03-24] MEDS ORDERED: OLANZapine 5 MG Tab PO ONE (22:37)
--- NOTE | 2017-03-25 01:30 | ANES ---
DATE OF SERVICE: 03/24/2017 TIME: 1900 hours. INDICATIONS: I was called by Dr. Padilla to evaluate Ms. Salinas for a lumbar puncture. This is a lady who came to the emergency room with some seizure activity earlier as well as headaches of unknown origin. He would like to do a lumbar puncture to evaluate her for meningitis. The risks and benefits of the procedure were explained to the patient and she wished to proceed with a lumbar puncture. DESCRIPTION OF THE PROCEDURE: She was placed in the left lateral decubitus position. I prepped her back with Betadine x3 and 1% lidocaine skin local was used. I placed a 25-gauge Pencan needle to the L4-5 interspace. There was positive CSF, which was clear and no blood was noted. I did initially obtain a pressure which was 21 cm of water. This fluid was then collected into tube #1. I did collect the remaining tubes for a total of 4 with 1 mL each of cerebrospinal fluid. These were labeled and sent to the lab. I removed the needle and placed a Band-Aid on her back and she tolerated the procedure very nicely. There were no anesthesia complications noted and the nurse was with me the entire procedure. José Silva CRNA /[id number]
== END 2017-03-24 23:28 | disposition home or self-care (01) ==
LOC: JP.ED 17:06
DX: R25.1 Tremor, unspecified (principal); M54.2 Cervicalgia; G89.29 Other chronic pain; R74.0 Nonspecific elevation of levels of transaminase and lactic acid dehydrogenase [LDH]; T14.8XXA Other injury of unspecified body region, initial encounter; F17.210 Nicotine dependence, cigarettes, uncomplicated; F31.9 Bipolar disorder, unspecified; Z79.899 Other long term (current) drug therapy; Z88.5 Allergy status to narcotic agent; Z88.6 Allergy status to analgesic agent; W19.XXXA Unspecified fall, initial encounter
CPT/HCPCS: 36415; 70450; 72125; 80048; 80076; 80305; 81001; 82945; 83605; 84157; 85027; 87040; 87070; 87205; 89050; 96361; 96365; 96375; 99285; A9270; G0480; J0131; J0696; J1200; J2060; J2270; J7040; J7050; J7120

== ENCOUNTER 2017-03-31 20:38 | Emergency (ER) | payer MEDICAID ==
[2017-03-31] MEDS ORDERED: diphenhydrAMINE 50 MG/ML SDV IVPUSH ONE (20:55)
[2017-03-31] MEDS ORDERED: Sodium Chloride 0.9% 10 ML Syringe FLUSH PRN (20:55)
[2017-03-31] MEDS ORDERED: Sodium Chloride 0.9% 1,000 ML IV SCH (21:00)
[2017-03-31] MEDS ORDERED: Midazolam 1 MG/ML 5 ML SDV IVPUSH ONE ×2 (21:13→21:43)
--- NOTE | 2017-03-31 22:16 | EDM.PDOC ---
ED HPI GENERAL MEDICAL PROBLEM - General Chief Complaint: Neuro Symptoms/Deficits Stated Complaint: SEIZURES Time Seen by Provider: 03/31/17 21:09 Source of Information: Reports: Family (Sandro), Old Records, RN Notes Reviewed History Limitations: Reports: Other (Convulsions, very difficult to talk) - History of Present Illness INITIAL COMMENTS - FREE TEXT/NARRATIVE: 41-year-old female, brought in by her , she's been having increasingly frequent "convulsions". 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 She had significant and immediate neck pain and spasms later followed by recurrent convulsions. Since then she's been seen at several hospitals including [facility], would deal with these episodes of convulsions associated with neck pain. She's also had cervical anesthetic injection into which did help with her neck pain for some time but did not controlled the convulsions. She does have a history of bipolar disorder and ADHD. 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 No recent psychiatric admission She has been on her medication as listed below. Her earlier episodes of convulsions were not associated with loss of consciousness but with the more recent episodes especially in the last 4 days, she's been unable to speak with the spells. She was seen this afternoon in [place], [place] states they were shopping where. Shortly afternoon she started having the spells and they didn't stop, they finally had to give her diazepam and Benadryl IV, she also received some pain medication at discharge for her neck pain. states it was hydromorphone. She felt recently well in the late afternoon and had dinner earlier this evening. They were staying at a hotel. She apparently was served some legal papers, the company surveying the papers contacted her by phone, and then she started having another episode of convulsions, over an hour by the time she arrived here When she arrived she was curled up in the car, her neck extended and bent to the left and she had spasms of her mouth that she was unable to talk and she had tension in her legs and arms rather than true spasms more like clonic contractions with tremors. She was able to open her eyes spontaneously but unable to speak. She's never had incontinence or tongue wound or any significant injuries from any the convulsions. She was given Benadryl here intravenously without any response. She settled down with thousand 15 mg IV which was repeated for continuing spasm and tremors in the first dose was starting to wear off. She is now resting comfortably and is able to respond to questions appropriately. Generalized Pain Score (Numeric/FACES): 8 - Related Data Allergies Allergy/AdvReac Type Severity Reaction Status Date / Time ketorolac tromethamine Allergy Unknown Cannot Verified 03/31/17 21:14 [From Toradol] Remember fentanyl Allergy Hives Verified 03/31/17 21:14 meperidine HCl [From Demerol] Allergy Itching Verified 03/31/17 21:14 morphine Allergy Itching Verified 03/31/17 21:14 propoxyphene Allergy Itching Verified 03/31/17 21:14 tramadol Allergy Hives Verified 03/31/17 21:14 cyclobenzaprine HCl AdvReac Vomiting Verified 03/31/17 21:14 [From Flexeril] hydromorphone HCl AdvReac Itching Verified 03/31/17 21:14 [From Dilaudid] Home Meds: Home Meds Zolpidem [Ambien] 10 mg PO BEDTIME PRN 05/16/13 [History] clonazePAM [Clonazepam] 1 mg PO BEDTIME 05/16/13 [History] rOPINIRole [Requip] 2 mg PO BEDTIME 05/16/13 [History] Gabapentin [Neurontin] 300 mg PO TID 03/24/17 [History] Cyclobenzaprine [Flexeril] 10 mg PO TID PRN 03/31/17 [History] EPINEPHrine [Epipen] 0.3 mg IM ASDIRECTED 03/31/17 [History] FLUoxetine [PROzac] 20 mg PO DAILY 03/31/17 [History] Ondansetron [Zuplenz] 4 mg PO Q8HR PRN 03/31/17 [History] Pantoprazole [ProTONIX] 40 mg PO ACBREAKFAST 03/31/17 [History] Past Medical History HEENT History: Reports: Otitis Media, Sinusitis Cardiovascular History: Reports: [place] Respiratory History: Reports: Asthma Gastrointestinal History: Reports: GERD, Irritable Bowel Syndrome, Pancreatitis , Other (See Below) Other Gastrointestinal History: colectomy Genitourinary History: Reports: Pyelonephritis 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 Neurological History: Reports: Migraines, Seizure Psychiatric History: Reports: ADHD, Anxiety, Bipolar, Depression, Mood Swings, PTSD, Schizophrenia Endocrine/Metabolic History: Reports: Hyperthyroidism Dermatologic History: Reports: Eczema - Infectious Disease History Infectious Disease History: Reports: Chicken Pox - Past Surgical History HEENT Surgical History: Reports: Tonsillectomy GI Surgical History: Reports: Cholecystectomy, Colonoscopy Social & Family History - Family History Cardiac: Reports: Hypertension, [place] - Tobacco Use Smoking Status *Q: Current Every Day Smoker Years of Tobacco use: 30 Packs/Tins Daily: 1 Used Tobacco, but Quit: No Month Tobacco Last Used: 24 Second Hand Smoke Exposure: Yes - Caffeine Use Caffeine Use: Reports: Coffee, Energy Drinks - Alcohol Use Days Per Week of Alcohol Use: 0 - Recreational Drug Use Recreational Drug Use: No Drug Use in Last 12 Months: No Recreational Drug Type: Reports: Cocaine, Other (see below) (pt has chronic prescription narcotic use hx) Recreational Drug Use Frequency: Not Used In Over 1 Year Recreational Drug Last Use: 13yrs ED ROS GENERAL - Review of Systems Review Of Systems: See Below Constitutional: Denies: Fever, Chills HEENT: Reports: No Symptoms Respiratory: Reports: No Symptoms Cardiovascular: Reports: No Symptoms Endocrine: Reports: No Symptoms GI/Abdominal: Reports: No Symptoms Musculoskeletal: Reports: Neck Pain Skin: Reports: No Symptoms Neurological: Reports: Headache, Seizure Psychiatric: Reports: Agitation, Anxiety Hematologic/Lymphatic: Reports: No Symptoms Immunologic: Reports: No Symptoms ED EXAM, GENERAL - Physical Exam Exam: See Below Exam Limited By: Other (Seizure-like activity, unable to speak) General Appearance: No: Other (Convulsing, curled up with her neck extended and turned to the left, limited ability to speak, not fully unconscious) Eye Exam: Bilateral Eye: Normal Inspection Ears: Normal External Exam, Normal TMs Nose: Normal Inspection, Normal Mucosa Throat/Mouth: Normal Inspection, Other (No tongue lesions or wounds) Head: Atraumatic Neck: Limited Range of Motion (Due to muscle spasm and tenderness). No: Lymphadenopathy (R), Lymphadenopathy (L) Respiratory/Chest: Lungs Clear, Chest Non-Tender Cardiovascular: Regular Rate, Rhythm, No Murmur GI/Abdominal: Soft, Non-Tender, No Mass Back Exam: Paraspinal Tenderness (Cervical area) Extremities: Normal Inspection Neurological: No Motor/Sensory Deficits, Other (Between spells she is drowsy but moves all limbs normally) Skin Exam: Warm, Dry, Intact, Normal Color, No Rash, Other (No wounds) Lymphatic: No Adenopathy Course - Vital Signs Last Recorded V/S: Last Vital Signs Temp 37.0 C 03/31/17 20:54 Pulse 79 03/31/17 22:33 Resp 21 H 03/31/17 21:30 BP 107/51 L 03/31/17 22:33 Pulse Ox 97 03/31/17 22:33 - Orders/Labs/Meds Orders: Active Orders 24 hr Category Date Time Status Peripheral IV Care [RC] . DIRECTED Care 03/31/17 20:56 Active Chest 1V Frontal [CR] Stat Exams 03/31/17 21:43 Taken Peripheral IV Insertion Adult [OM.PC] Routine Oth 03/31/17 20:55 Ordered Labs: Laboratory Tests 03/31/17 03/31/17 03/31/17 Range/Units 21:08 21:08 21:55 WBC 16.9 H (4.5-11.0) K/uL RBC 4.61 (3.30-5.50) M/uL Hgb 13.9 (12.0-15.0) g/dL Hct 42.0 (36.0-48.0) % MCV 91 (80-98) fL MCH 30 (27-31) pg MCHC 33 (32-36) % Plt Count 405 H (150-400) K/uL Sodium 139 L (140-148) mmol/L Potassium 4.5 (3.6-5.2) mmol/L Chloride 105 (100-108) mmol/L Carbon Dioxide 25 (21-32) mmol/L Anion Gap 13.5 (5.0-14.0) mmol/L BUN 31 H (7-18) mg/dL Creatinine 1.1 H (0.6-1.0) mg/dL Est Cr Clr Drug Dosing 66.11 mL/min Estimated GFR (MDRD) 55 L (>60) Glucose 97 (74-106) mg/dL Calcium 9.0 (8.5-10.1) mg/dL Total Bilirubin 0.6 (0.2-1.0) mg/dL AST 25 (15-37) U/L ALT 95 H (12-78) U/L Alkaline Phosphatase 40 L (46-116) U/L Total Protein 6.8 (6.4-8.2) g/dL Albumin 3.5 (3.4-5.0) g/dL Globulin 3.3 (2.3-3.5) g/dL Albumin/Globulin Ratio 1.1 L (1.2-2.2) Urine Color Yellow Urine Appearance Clear Urine pH 6.0 (4.5-8.0) Ur Specific [place] 1.025 (1.008-1.030) Urine Protein Negative (NEGATIVE) mg/dL Urine Glucose (UA) Normal (NEGATIVE) mg/dL Urine Ketones Negative (NEGATIVE) mg/dL Urine Occult Blood Negative (NEGATIVE) Urine Nitrite Negative (NEGATIVE) Urine Bilirubin Negative (NEGATIVE) Urine Urobilinogen Normal (NORMAL) mg/dL Ur Leukocyte Esterase Negative (NEGATIVE) Urine RBC Not seen (0-5) Urine WBC 0-5 (0-5) Ur Epithelial Cells Few Amorphous Sediment Not seen Urine Bacteria Few Urine Mucus Not seen Meds: Medications Discontinued Medications Generic Name Dose Route Start Last Admin Trade Name Freq PRN Reason Stop Dose Admin Diphenhydramine HCl 50 mg 03/31/17 20:55 03/31/17 21:01 Benadryl IVPUSH 03/31/17 20:56 50 mg ONETIME ONE Administration Sodium Chloride 1,000 mls @ 250 mls/hr 03/31/17 21:00 03/31/17 21:01 Normal Saline IV 250 mls/hr ASDIRECTED JOSE M Administration Midazolam HCl 5 mg 03/31/17 21:13 03/31/17 21:17 Versed 1 Mg/Ml IVPUSH 03/31/17 21:14 5 mg ONETIME ONE Administration Midazolam HCl 5 mg 03/31/17 21:43 03/31/17 22:00 Versed 1 Mg/Ml IVPUSH 03/31/17 21:44 5 mg ONETIME ONE Administration Sodium Chloride 10 ml 03/31/17 20:55 03/31/17 21:04 Saline Flush FLUSH 10 ml ASDIRECTED PRN Administration Keep Vein Open - Re-Assessments/Exams Free Text/Narrative Re-Assessment/Exam: 03/31/17 22:41 Intravenous established Benzodiazepine 50 milligrams IV without response Herbie lamp 5 mg IV with good response. Later when tremors recurred after about half an hour, [place] M5 milligrams IV repeated. Portable chest x-ray negative by my interpretation Minimal elevation of ALP, this was elevated higher than previous visit. Elevated white count 16.9 Normal hemoglobin Urinalysis pending Impression is of recurrent convulsive episodes Neck pain, recurrent Pre-existing psychiatric illness including ADHD bipolar disorder and possible schizophreniform disorder. In discussion, it was felt transferred to Center where neurology was available for assessment will be appropriate. Due to whether we cannot transfer [place], transfer arranged to [facility] where Dr. Salazar, hospitalist, has graciously accepted the patient and will manage care Departure - Departure Time of Disposition: 22:43 Disposition: DC/Tfer to Acute Hospital 02 Condition: Undetermined Clinical Impression: Neck pain of over 3 months duration Convulsions Qualifiers: Convulsion type: unspecified Qualified Code(s): R56.9 - Unspecified convulsions Bipolar disorder Qualifiers: Active/Remission status: remission status unspecified Qualified Code(s): F31.9 - Bipolar disorder, unspecified - Discharge Information - My Orders Last 24 Hours: My Active Orders 03/31/17 20:55 Peripheral IV Insertion Adult [OM.PC] Routine 03/31/17 20:56 Peripheral IV Care [RC] . DIRECTED 03/31/17 21:43 Chest 1V Frontal [CR] Stat - Assessment/Plan Last 24 Hours: My Active Orders 03/31/17 20:55 Peripheral IV Insertion Adult [OM.PC] Routine 03/31/17 20:56 Peripheral IV Care [RC] . DIRECTED 03/31/17 21:43 Chest 1V Frontal [CR] Stat
[2017-03-31 22:34] VITALS: BP 107/51
--- NOTE | 2017-04-01 08:38 | CR ---
Chest 1V Frontal INDICATION: elevated white count COMPARISON: Exam from 2007 FINDINGS: Single view of the chest obtained shows normal heart size. No infiltrate or pleural effus ion. No signs of pulmonary edema. IMPRESSION: Negative single view of the chest.
== END 2017-03-31 23:30 ==
LOC: JP.ED 20:38
DX: R56.9 Unspecified convulsions (principal); M54.2 Cervicalgia; F31.9 Bipolar disorder, unspecified; J45.909 Unspecified asthma, uncomplicated; K21.9 Gastro-esophageal reflux disease without esophagitis; F17.210 Nicotine dependence, cigarettes, uncomplicated; Z79.899 Other long term (current) drug therapy; Z88.5 Allergy status to narcotic agent; Z88.6 Allergy status to analgesic agent; Z88.8 Allergy status to other drugs, medicaments and biological substances
CPT/HCPCS: 36415; 71010; 80053; 81001; 85027; 96361; 96374; 96375; 96376; 99285; J1200; J2250; J7040; J7050; 99284

== ENCOUNTER 2017-04-04 17:57 | Emergency (ER) | payer MEDICAID ==
[2017-04-04 18:07] VITALS: BP 108/68
--- NOTE | 2017-04-04 18:20 | EDM.PDOC ---
ED HPI GENERAL MEDICAL PROBLEM - General Chief Complaint: Neuro Symptoms/Deficits Stated Complaint: MEDICAL VIA TRI Time Seen by Provider: 04/04/17 18:10 Source of Information: Reports: Patient, EMS History Limitations: Reports: No Limitations - History of Present Illness INITIAL COMMENTS - FREE TEXT/NARRATIVE: 41-year-old female with "lots of stress" was recently evaluated by neurology in [facility] for seizures. She was diagnosed with pseudoseizures and discharge. While she was at a local business she started having "seizures". EMS was called, 1 mg of Ativan was given in route but she still had a seizure-like activity in route but was talking while having the seizure. No fevers or chills. She is now asking for something for pain because she had "for seizures and hurts all over". She is allergic to Toradol. Acetaminophen doesn't work. She is complaining of a headache. Associated Symptoms: Reports: Other (Anxiety) Generalized Pain Score (Numeric/FACES): 7 - Related Data Allergies Allergy/AdvReac Type Severity Reaction Status Date / Time ketorolac tromethamine Allergy Unknown Cannot Verified 04/04/17 18:17 [From Toradol] Remember fentanyl Allergy Hives Verified 04/04/17 18:17 meperidine HCl [From Demerol] Allergy Itching Verified 04/04/17 18:17 morphine Allergy Itching Verified 04/04/17 18:17 propoxyphene Allergy Itching Verified 04/04/17 18:17 tramadol Allergy Hives Verified 04/04/17 18:17 cyclobenzaprine HCl AdvReac Vomiting Verified 04/04/17 18:17 [From Flexeril] hydromorphone HCl AdvReac Itching Verified 04/04/17 18:17 [From Dilaudid] Home Meds: Home Meds Zolpidem [Ambien] 10 mg PO BEDTIME PRN 05/16/13 [History] clonazePAM [Clonazepam] 1 mg PO BEDTIME 05/16/13 [History] rOPINIRole [Requip] 2 mg PO BEDTIME 05/16/13 [History] Gabapentin [Neurontin] 300 mg PO TID 03/24/17 [History] Cyclobenzaprine [Flexeril] 10 mg PO TID PRN 03/31/17 [History] EPINEPHrine [Epipen] 0.3 mg IM ASDIRECTED 03/31/17 [History] FLUoxetine [PROzac] 20 mg PO DAILY 03/31/17 [History] Ondansetron [Zuplenz] 4 mg PO Q8HR PRN 03/31/17 [History] Pantoprazole [ProTONIX] 40 mg PO ACBREAKFAST 03/31/17 [History] LORazepam [Ativan] 0.5 mg PO Q6H PRN 04/04/17 [History] oxyCODONE 5 mg PO Q6H PRN 04/04/17 [History] Past Medical History HEENT History: Reports: Otitis Media, Sinusitis Other HEENT History: Dental Carries Cardiovascular History: Reports: [place] Respiratory History: Reports: Asthma Gastrointestinal History: Reports: GERD, Irritable Bowel Syndrome, Pancreatitis , Other (See Below) Other Gastrointestinal History: colectomy Genitourinary History: Reports: 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 Neurological History: Reports: Migraines, Seizure Other Neuro History: Clonic Tremors Psychiatric History: Reports: ADHD, Anxiety, Bipolar, Depression, Mood Swings, PTSD, Schizophrenia Endocrine/Metabolic History: Reports: Hyperthyroidism Dermatologic History: Reports: Eczema - Infectious Disease History Infectious Disease History: Reports: Chicken Pox - Past Surgical History HEENT Surgical History: Reports: Tonsillectomy GI Surgical History: Reports: Cholecystectomy, Colonoscopy Social & Family History - Family History Family Medical History: Unobtainable Cardiac: Reports: Hypertension, [place] - Tobacco Use Smoking Status *Q: Current Every Day Smoker Years of Tobacco use: 30 Packs/Tins Daily: 1 Used Tobacco, but Quit: No Month Tobacco Last Used: 24 Second Hand Smoke Exposure: Yes - Caffeine Use Caffeine Use: Reports: Coffee, Energy Drinks - Alcohol Use Days Per Week of Alcohol Use: 0 - Recreational Drug Use Recreational Drug Use: No Drug Use in Last 12 Months: No Recreational Drug Type: Reports: Cocaine, Other (see below) (pt has chronic prescription narcotic use hx) Recreational Drug Use Frequency: Not Used In Over 1 Year Recreational Drug Last Use: 13yrs ED ROS GENERAL - Review of Systems Review Of Systems: See Below Constitutional: Reports: Malaise. Denies: Fever, Chills Respiratory: Denies: Shortness of Breath Cardiovascular: Denies: Chest Pain Musculoskeletal: Reports: Muscle Pain (Aches all over) Skin: Reports: No Symptoms Neurological: Reports: Headache Psychiatric: Reports: Anxiety ED EXAM, GENERAL - Physical Exam Exam: See Below Exam Limited By: No Limitations General Appearance: Alert, No Apparent Distress Eye Exam: Bilateral Eye: EOMI Respiratory/Chest: No Respiratory Distress Cardiovascular: Regular Rate, Rhythm Neurological: Alert, Oriented, No Motor/Sensory Deficits (No gross asymmetries of movement or strength of the extremities) Psychiatric: Depressed Mood, Flat Affect Skin Exam: Warm, Dry Course - Vital Signs Last Recorded V/S: Last Vital Signs Temp 97.0 F 04/04/17 18:16 Pulse 101 H 04/04/17 18:16 Resp 18 04/04/17 18:16 BP 108/68 04/04/17 18:16 Pulse Ox 96 04/04/17 18:16 - Orders/Labs/Meds Meds: Medications Discontinued Medications Generic Name Dose Route Start Last Admin Trade Name Freq PRN Reason Stop Dose Admin Acetaminophen 1,000 mg 04/04/17 18:34 04/04/17 18:39 Tylenol Extra Strength PO 04/04/17 18:35 1,000 mg ONETIME ONE Administration - Re-Assessments/Exams Free Text/Narrative Re-Assessment/Exam: 04/04/17 20:25 Patient was monitored for half an hour and was stable. 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 04/04/17 20:26 Patient ambulated out of the emergency room looking comfortable and in no distress Departure - Departure Time of Disposition: 19:13 Disposition: Home, Self-Care 01 Condition: Good Clinical Impression: Pseudoseizures Headache Qualifiers: Headache type: tension-type Headache chronicity pattern: episodic headache Intractability: not intractable Qualified Code(s): G44.219 - Episodic tension- type headache, not intractable - Discharge Information Instructions: General Headache Without Cause, Nonepileptic Seizures Referrals: PCP,None [Primary Care Provider] - Forms: ED Department Discharge Care Plan Goals: Continue your current medications, increase activity as tolerated and pseudoseizures persist try to get rest and follow up with outpatient counseling or other help to help with stress.
[2017-04-04] MEDS ORDERED: Acetaminophen 500 MG Tab PO ONE (18:34)
== END 2017-04-04 19:13 | disposition home or self-care (01) ==
LOC: JP.ED 17:57
DX: F44.5 Conversion disorder with seizures or convulsions (principal); G44.219 Episodic tension-type headache, not intractable; F17.210 Nicotine dependence, cigarettes, uncomplicated; J45.909 Unspecified asthma, uncomplicated; Z79.899 Other long term (current) drug therapy; Z88.5 Allergy status to narcotic agent; Z88.8 Allergy status to other drugs, medicaments and biological substances
CPT/HCPCS: 99284; A9270

== ENCOUNTER 2017-04-06 15:36 | Emergency (ER) | payer MEDICAID ==
[2017-04-06 15:55] VITALS: BP 178/101
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
[2017-04-06] MEDS ORDERED: Bacitracin Oint 1 GM U/D Packet TOP ONE (16:23)
[2017-04-06] MEDS ORDERED: Acetaminophen 325 MG Tab PO ONE (16:57)
[2017-04-06] MEDS ORDERED: cefTRIAXone 1 GM, Lidocaine 1% 2.1 ML IM ONE ×2 (17:49)
== END 2017-04-06 18:58 | disposition home or self-care (01) ==
LOC: JP.ED 15:36
DX: S02.2XXA Fracture of nasal bones, initial encounter for closed fracture (principal); S01.21XA Laceration without foreign body of nose, initial encounter; J45.909 Unspecified asthma, uncomplicated; F17.210 Nicotine dependence, cigarettes, uncomplicated; Z88.5 Allergy status to narcotic agent; Z88.8 Allergy status to other drugs, medicaments and biological substances; Z79.899 Other long term (current) drug therapy; W22.8XXA Striking against or struck by other objects, initial encounter
CPT/HCPCS: 12011; 70450; 70486; 72125; 96374; 99285; A9270; J0696; 99283-25

== ENCOUNTER 2017-04-18 18:38 | Emergency (ER) | payer MEDICAID ==
[2017-04-18 19:09] VITALS: BP 129/93
--- NOTE | 2017-04-18 19:35 | EDM.PDOC ---
ED HPI GENERAL MEDICAL PROBLEM - General Chief Complaint: ENT Problem Stated Complaint: PAIN IN NOSE/TUBES FALLING OUT Time Seen by Provider: 04/18/17 19:10 Source of Information: Reports: Patient, Family History Limitations: Reports: No Limitations - History of Present Illness INITIAL COMMENTS - FREE TEXT/NARRATIVE: 41-year-old female who had his surgery several days ago has supportive nasal trumpets sutured into the septum. Over the past several hours she feels like the trumpets are moving, obstructing her airway and making it difficult to swallow. Severity: Moderate Associated Symptoms: Denies: Fever/Chills, Shortness of Breath - Related Data Allergies Allergy/AdvReac Type Severity Reaction Status Date / Time ketorolac tromethamine Allergy Unknown Cannot Verified 04/18/17 18:59 [From Toradol] Remember fentanyl Allergy Hives Verified 04/18/17 18:59 meperidine HCl [From Demerol] Allergy Itching Verified 04/18/17 18:59 morphine Allergy Itching Verified 04/18/17 18:59 propoxyphene Allergy Itching Verified 04/18/17 18:59 tramadol Allergy Hives Verified 04/18/17 18:59 cyclobenzaprine HCl AdvReac Vomiting Verified 04/18/17 18:59 [From Flexeril] hydromorphone HCl AdvReac Itching Verified 04/18/17 18:59 [From Dilaudid] Home Meds: Home Meds Zolpidem [Ambien] 10 mg PO BEDTIME PRN 05/16/13 [History] clonazePAM [Clonazepam] 1 mg PO BEDTIME 05/16/13 [History] rOPINIRole [Requip] 2 mg PO BEDTIME 05/16/13 [History] Gabapentin [Neurontin] 300 mg PO TID 03/24/17 [History] Cyclobenzaprine [Flexeril] 10 mg PO TID PRN 03/31/17 [History] EPINEPHrine [Epipen] 0.3 mg IM ASDIRECTED 03/31/17 [History] FLUoxetine [PROzac] 20 mg PO DAILY 03/31/17 [History] Ondansetron [Zuplenz] 4 mg PO Q8HR PRN 03/31/17 [History] Pantoprazole [ProTONIX] 40 mg PO ACBREAKFAST 03/31/17 [History] LORazepam [Ativan] 0.5 mg PO Q6H PRN 04/04/17 [History] oxyCODONE 5 mg PO Q6H PRN 04/04/17 [History] Past Medical History HEENT History: Reports: Otitis Media, Sinusitis Other HEENT History: Dental Carries Cardiovascular History: Reports: [place] Respiratory History: Reports: Asthma Gastrointestinal History: Reports: GERD, Irritable Bowel Syndrome, Pancreatitis , Other (See Below) Other Gastrointestinal History: colectomy Genitourinary History: Reports: Pyelonephritis 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 Neurological History: Reports: Migraines, Seizure Other Neuro History: Clonic Tremors Psychiatric History: Reports: ADHD, Anxiety, Bipolar, Depression, Mood Swings, PTSD, Schizophrenia Endocrine/Metabolic History: Reports: Hyperthyroidism Dermatologic History: Reports: Eczema - Infectious Disease History Infectious Disease History: Reports: C-Difficile - Past Surgical History HEENT Surgical History: Reports: Tonsillectomy GI Surgical History: Reports: Cholecystectomy, Colonoscopy Social & Family History - Family History Family Medical History: Unobtainable Cardiac: Reports: Hypertension, [place] - Tobacco Use Smoking Status *Q: Current Every Day Smoker Years of Tobacco use: 30 Packs/Tins Daily: 1 Used Tobacco, but Quit: No Month Tobacco Last Used: 24 Second Hand Smoke Exposure: Yes - Caffeine Use Caffeine Use: Reports: Coffee, Energy Drinks - Alcohol Use Days Per Week of Alcohol Use: 0 - Recreational Drug Use Recreational Drug Use: Yes Drug Use in Last 12 Months: No Recreational Drug Type: Reports: Cocaine, Other (see below) Recreational Drug Use Frequency: Not Used In Over 1 Year Recreational Drug Last Use: 13yrs ED ROS ENT - Review of Systems Review Of Systems: See Below Constitutional: Reports: Malaise. Denies: Fever, Chills HEENT: Reports: Throat Pain Respiratory: Denies: Shortness of Breath GI/Abdominal: Denies: Abdominal Pain Skin: Reports: No Symptoms Psychiatric: Reports: Anxiety ED EXAM, ENT - Physical Exam Exam: See Below Exam Limited By: No Limitations General Appearance: Alert, No Apparent Distress, Anxious Nose: Other (There appears to be a suture in place and the septum, the left tube is visible. The posterior pharynx is normal.) Course - Vital Signs Last Recorded V/S: Last Vital Signs Temp 96.8 F 04/18/17 19:07 Pulse 82 04/18/17 19:07 Resp 18 04/18/17 19:07 BP 129/93 H 04/18/17 19:07 Pulse Ox 98 04/18/17 19:07 - Re-Assessments/Exams Free Text/Narrative Re-Assessment/Exam: 04/18/17 19:39 I had a discussion with Dr. Olmedo of ENT regarding the patient's symptoms. The only way he can assess the patient and remove the tubes as if she goes to [place] , she will be transported by family. Departure - Departure Time of Disposition: 19:39 Disposition: DC/Tfer to Other 70 Condition: Fair Clinical Impression: Postoperative complication Qualifiers: Surgical complication system/body Area: respiratory system Surgical complication type: other Qualified Code(s): J95.89 - Other postprocedural complications and disorders of respiratory system, not elsewhere classified - Discharge Information Instructions: Nasal Fracture, [id number] Referrals: Micah Barnard MD [Primary Care Provider] - Forms: ED Department Discharge Care Plan Goals: Go to the [facility] emergency room to have further evaluation of your postoperative nasal tubes.
== END 2017-04-18 19:40 | disposition other institution (70) ==
LOC: JP.ED 18:38
DX: J95.89 Other postprocedural complications and disorders of respiratory system, not elsewhere classified (principal); F17.210 Nicotine dependence, cigarettes, uncomplicated; Z88.5 Allergy status to narcotic agent; Z88.8 Allergy status to other drugs, medicaments and biological substances; Z79.899 Other long term (current) drug therapy
CPT/HCPCS: 99284

== ENCOUNTER 2017-06-10 10:22 | Emergency (ER) | payer MEDICAID ==
[2017-06-10] MEDS ORDERED: LORazepam 2 MG/ML MDV IM ONE (10:30)
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
[2017-06-10 11:17] VITALS: BP 129/82
== END 2017-06-10 11:22 | disposition home or self-care (01) ==
LOC: JP.ED 10:22
DX: F41.9 Anxiety disorder, unspecified (principal); R29.818 Other symptoms and signs involving the nervous system; I25.2 Old myocardial infarction; J45.909 Unspecified asthma, uncomplicated; F32.9 Major depressive disorder, single episode, unspecified; F17.210 Nicotine dependence, cigarettes, uncomplicated; Z88.5 Allergy status to narcotic agent; Z88.8 Allergy status to other drugs, medicaments and biological substances; Z79.899 Other long term (current) drug therapy
CPT/HCPCS: 36600; 82803; 96372; 99285; J2060; 99283

== ENCOUNTER 2018-12-11 15:51 | Emergency (ER) | payer MEDICAID, OTHER ==
[2018-12-11 16:16] VITALS: BP 136/91; PULSE 82
--- NOTE | 2018-12-11 16:45 | EDM.PDOC ---
ED HPI GENERAL MEDICAL PROBLEM - General Chief Complaint: Upper Extremity Injury/Pain Stated Complaint: INJURED LEFT ELBOW Time Seen by Provider: 12/11/18 16:15 Source of Information: Reports: Patient, Police History Limitations: Reports: No Limitations - History of Present Illness INITIAL COMMENTS - FREE TEXT/NARRATIVE: 43-year-old female who is been incarcerated locally for the past week slipped and fell in the care home landing on her left arm. She said she felt her left elbow "crunching, and moving in ways it was not supposed to. She is now tearful and holding her left elbow and brought in by law enforcement. No other injury. Onset: Sudden Duration: Hour(s): (Within the last few hours) Location: Reports: Upper Extremity, Left Associated Symptoms: Reports: No Other Symptoms Left Elbow Pain Score (Numeric/FACES): 9 - Related Data Allergies Allergy/AdvReac Type Severity Reaction Status Date / Time ketorolac tromethamine Allergy Unknown Cannot Verified 06/10/17 10:28 [From Toradol] Remember fentanyl Allergy Hives Verified 06/10/17 10:28 meperidine HCl [From Demerol] Allergy Itching Verified 06/10/17 10:28 morphine Allergy Itching Verified 06/10/17 10:28 propoxyphene Allergy Itching Verified 06/10/17 10:28 tramadol Allergy Hives Verified 06/10/17 10:28 cyclobenzaprine HCl AdvReac Vomiting Verified 06/10/17 10:28 [From Flexeril] hydromorphone HCl AdvReac Itching Verified 06/10/17 10:28 [From Dilaudid] Home Meds: Home Meds rOPINIRole [Requip] 2 mg PO BEDTIME 05/16/13 [History] Gabapentin [Neurontin] 600 mg PO TID 03/24/17 [History] EPINEPHrine [Epipen] 0.3 mg IM ASDIRECTED 03/31/17 [History] Pantoprazole [ProTONIX] 40 mg PO ACBREAKFAST 03/31/17 [History] Ranitidine HCl [Ranitidine] 1 tab PO BID 06/10/17 [History] SUMAtriptan [Imitrex] 1 tab PO ASDIRECTED PRN 06/10/17 [History] DULoxetine [Cymbalta] 1 tab PO DAILY 12/11/18 [History] Prazosin HCl [Prazosin] 1 tab PO DAILY 12/11/18 [History] Ziprasidone HCl 1 tab PO BID 12/11/18 [History] metFORMIN HCl [Metformin HCl] 1 tab PO BID 12/11/18 [History] Past Medical History HEENT History: Reports: Otitis Media, Sinusitis Other HEENT History: Dental Carries Cardiovascular History: Reports: [place] Respiratory History: Reports: Asthma Gastrointestinal History: Reports: GERD, Irritable Bowel Syndrome, Pancreatitis , Other (See Below) Other Gastrointestinal History: colectomy Genitourinary History: Reports: Pyelonephritis 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 Neurological History: Reports: Migraines, Seizure Other Neuro History: Clonic Tremors Psychiatric History: Reports: ADHD, Anxiety, Bipolar, Depression, Mood Swings, PTSD, Schizophrenia Endocrine/Metabolic History: Reports: Diabetes, Type II, Hyperthyroidism Dermatologic History: Reports: Eczema - Infectious Disease History Infectious Disease History: Reports: C-Difficile - Past Surgical History HEENT Surgical History: Reports: Other (See Below) Other HEENT Surgeries/Procedures: nose surgery GI Surgical History: Reports: Cholecystectomy, Colonoscopy Neurological Surgical History: Reports: Laminectomy, Other (See Below) Other Neurological Surgeries/Procedures: 3 back surgeries Musculoskeletal Surgical History: Reports: Other (See Below) Other Musculoskeletal Surgeries/Procedures:: bunionectomy Social & Family History - Family History Family Medical History: Unobtainable Cardiac: Reports: Hypertension, [place] - Tobacco Use Smoking Status *Q: Light Tobacco Smoker Years of Tobacco use: 30 Packs/Tins Daily: 0.5 - Caffeine Use Caffeine Use: Reports: Coffee, Energy Drinks - Recreational Drug Use Recreational Drug Use: No Review of Systems - Review of Systems Review Of Systems: See Below Constitutional: Denies: Fever Respiratory: Denies: Shortness of Breath GI/Abdominal: Denies: Abdominal Pain Skin: Denies: Bruising ED EXAM, GENERAL - Physical Exam Exam: See Below Exam Limited By: No Limitations General Appearance: Alert, Mild Distress (Tearful) Head: Atraumatic Respiratory/Chest: No Respiratory Distress Extremities: Other (Exam is otherwise limited to the left arm. She does appear to have a small amount of swelling posterior to the olecranon, otherwise no significant deformity or bruising. Any palpation about the area or movement of the forearm causes her pain.) Course - Vital Signs Last Recorded V/S: Last Vital Signs Temp 96.8 F 12/11/18 16:19 Pulse 82 12/11/18 16:19 Resp 20 12/11/18 16:19 BP 136/91 H 12/11/18 16:19 Pulse Ox 98 12/11/18 16:19 - Orders/Labs/Meds Orders: Active Orders 24 hr Category Date Time Status DME for Discharge [COMM] Stat Oth 12/11/18 16:54 Ordered - Re-Assessments/Exams Free Text/Narrative Re-Assessment/Exam: 12/11/18 16:45 An x-ray of the left elbow was obtained. 12/11/18 16:55 X-ray of the elbow was normal, but does not appear to be a fat pad sign. She'll be placed in a sling for comfort and can be rechecked by orthopedics next week if not improving satisfactorily. She should remove the arm from the sling once or twice daily and can take ibuprofen at the care home. Departure - Departure Time of Disposition: 17:22 Disposition: Home, Self-Care 01 Clinical Impression: Sprain of elbow, left Qualifiers: Encounter type: initial encounter Qualified Code(s): S53.402A - Unspecified sprain of left elbow, initial encounter - Discharge Information Instructions: Muscle Strain Referrals: Marry Recinos PA-C [Primary Care Provider] - Forms: ED Department Discharge Care Plan Goals: Wear sling for comfort through the weekend, take ibuprofen on a regular basis and remove arm twice daily for gentle range of motion. Recheck next week with orthopedics if not improving satisfactorily. No follow-up is necessary if you are improving rapidly and can increase your activity over the next 3-5 days. - My Orders Last 24 Hours: My Active Orders 12/11/18 16:54 DME for Discharge [COMM] Stat - Assessment/Plan Last 24 Hours: My Active Orders 12/11/18 16:54 DME for Discharge [COMM] Stat
--- NOTE | 2018-12-11 16:56 | CRLCR ---
INDICATION: injury TECHNIQUE: Left elbow 4 views. COMPARISON: None. FINDINGS: Bones: Alignment is normal. No fractures or bone lesions. Joint spaces: Unremarkable. Soft tissues: Unremarkable. IMPRESSION: Unremarkable left elbow. Dictated by: Micah Wong MD @ 12/11/2018 16:55:54 (Electronically Signed)
== END 2018-12-11 17:00 | disposition home or self-care (01) ==
LOC: JP.ED 15:51
DX: S53.402A Unspecified sprain of left elbow, initial encounter (principal); I25.2 Old myocardial infarction; K21.9 Gastro-esophageal reflux disease without esophagitis; F90.9 Attention-deficit hyperactivity disorder, unspecified type; F41.9 Anxiety disorder, unspecified; E11.9 Type 2 diabetes mellitus without complications; E05.90 Thyrotoxicosis, unspecified without thyrotoxic crisis or storm; F17.210 Nicotine dependence, cigarettes, uncomplicated; Z88.5 Allergy status to narcotic agent; Z88.6 Allergy status to analgesic agent; Z79.899 Other long term (current) drug therapy; Z79.84 Long term (current) use of oral hypoglycemic drugs; W01.0XXA Fall on same level from slipping, tripping and stumbling without subsequent striking against object, initial encounter
CPT/HCPCS: 73080-LT; 99283-25

== ENCOUNTER 2018-12-15 18:35 | Emergency (ER) | payer MEDICAID, OTHER ==
[2018-12-15 18:51] VITALS: BP 155/74; PULSE 77
[2018-12-15] MEDS ORDERED: Metoclopramide 10 MG/2 ML SDV IM ONE (19:38)
[2018-12-15] MEDS ORDERED: Acetaminophen 500 MG Tab PO ONE (19:39)
--- NOTE | 2018-12-15 19:45 | EDM.PDOC ---
ED HPI GENERAL MEDICAL PROBLEM - General Chief Complaint: Gastrointestinal Problem Stated Complaint: DIABETIC,SHAKING,DIZZY Time Seen by Provider: 12/15/18 19:35 Source of Information: Reports: Patient, Old Records, RN History Limitations: Reports: No Limitations - History of Present Illness INITIAL COMMENTS - FREE TEXT/NARRATIVE: 43 yo female with about a 6 yr hx of marginally controlled DM was traveling in a car and got shaky, nauseous, and got a CARLSON. She vomited once after this. No chest pain or SOB. Was not diaphoretic. Ate a peanut butter cookie before arrival. Just got out of [facility] yesterday. Says it is not uncommon for her to feel full many hours after eating and when she vomited her lunch came up from noon today. Had her gallbladder out in the past. Onset: Today Onset Date: 12/15/18 Onset Time: 18:15 Duration: Minutes:, Improving Location: Reports: Head, Abdomen Quality: Reports: Dull Severity: Moderate Improves with: Reports: None Worsens with: Reports: None Context: Reports: Other (See HPI) Associated Symptoms: Reports: Headaches, Nausea/Vomiting. Denies: Chest Pain, Diaphoresis, Fever/Chills, Rash, Shortness of Breath Treatments HEALTH AND SAFETY TECH: Reports: Other (see below) (none) Headache Pain Score (Numeric/FACES): 7 - Related Data Allergies Allergy/AdvReac Type Severity Reaction Status Date / Time ketorolac tromethamine Allergy Unknown Cannot Verified 06/10/17 10:28 [From Toradol] Remember fentanyl Allergy Hives Verified 06/10/17 10:28 meperidine HCl [From Demerol] Allergy Itching Verified 06/10/17 10:28 morphine Allergy Itching Verified 06/10/17 10:28 propoxyphene Allergy Itching Verified 06/10/17 10:28 tramadol Allergy Hives Verified 06/10/17 10:28 cyclobenzaprine HCl AdvReac Vomiting Verified 06/10/17 10:28 [From Flexeril] hydromorphone HCl AdvReac Itching Verified 06/10/17 10:28 [From Dilaudid] Home Meds: Home Meds rOPINIRole [Requip] 2 mg PO BEDTIME 05/16/13 [History] Gabapentin [Neurontin] 600 mg PO TID 03/24/17 [History] EPINEPHrine [Epipen] 0.3 mg IM ASDIRECTED 03/31/17 [History] Pantoprazole [ProTONIX] 40 mg PO ACBREAKFAST 03/31/17 [History] Ranitidine HCl [Ranitidine] 1 tab PO BID 06/10/17 [History] SUMAtriptan [Imitrex] 1 tab PO ASDIRECTED PRN 06/10/17 [History] Ziprasidone HCl 1 tab PO BID 12/11/18 [History] metFORMIN HCl [Metformin HCl] 1 tab PO BID 12/11/18 [History] Past Medical History HEENT History: Reports: Otitis Media, Sinusitis Other HEENT History: Dental Carries Cardiovascular History: Reports: [place] Respiratory History: Reports: Asthma Gastrointestinal History: Reports: GERD, Irritable Bowel Syndrome, Pancreatitis , Other (See Below) Other Gastrointestinal History: colectomy Genitourinary History: Reports: Pyelonephritis 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 Neurological History: Reports: Migraines, Seizure Other Neuro History: Clonic Tremors Psychiatric History: Reports: ADHD, Anxiety, Bipolar, Depression, Mood Swings, PTSD, Schizophrenia Endocrine/Metabolic History: Reports: Diabetes, Type II, Hyperthyroidism Dermatologic History: Reports: Eczema - Infectious Disease History Infectious Disease History: Reports: Chicken Pox - Past Surgical History HEENT Surgical History: Reports: Other (See Below) Other HEENT Surgeries/Procedures: nose surgery GI Surgical History: Reports: Cholecystectomy, Colonoscopy Neurological Surgical History: Reports: Laminectomy, Other (See Below) Other Neurological Surgeries/Procedures: 3 back surgeries Musculoskeletal Surgical History: Reports: Other (See Below) Other Musculoskeletal Surgeries/Procedures:: bunionectomy Social & Family History - Family History Family Medical History: Unobtainable Cardiac: Reports: Hypertension, [place] - Tobacco Use Smoking Status *Q: Current Every Day Smoker Years of Tobacco use: 30 Packs/Tins Daily: 0.5 Used Tobacco, but Quit: No Second Hand Smoke Exposure: No - Caffeine Use Caffeine Use: Reports: Soda - Recreational Drug Use Recreational Drug Use: No ED ROS GENERAL - Review of Systems Review Of Systems: See Below Constitutional: Reports: No Symptoms HEENT: Reports: No Symptoms Respiratory: Reports: No Symptoms Cardiovascular: Reports: No Symptoms Endocrine: Reports: No Symptoms GI/Abdominal: Reports: Nausea, Vomiting. Denies: Abdominal Pain, Black Stool, Bloody Stool, Constipation, Diarrhea, Melena Musculoskeletal: Reports: No Symptoms Skin: Reports: No Symptoms Neurological: Reports: Headache, Tremors Psychiatric: Reports: No Symptoms ED EXAM, GI/ABD - Physical Exam Exam: See Below Exam Limited By: No Limitations General Appearance: Alert, WD/WN, No Apparent Distress Eyes: Bilateral: Normal Appearance Ears: Normal External Exam, Normal Canal, Hearing Grossly Normal, Normal TMs Nose: Normal Inspection, No Blood Throat/Mouth: Normal Inspection, Normal Lips, Normal Oropharynx, Normal Voice, No Airway Compromise Head: Atraumatic, Normocephalic Neck: Normal Inspection Respiratory/Chest: No Respiratory Distress, Lungs Clear, Normal Breath Sounds, No Accessory Muscle Use Cardiovascular: Regular Rate, Rhythm, No Edema GI/Abdominal Exam: Normal Bowel Sounds, Soft, No Distention, Tender (mild RUQ tenderness) Extremities: Normal Inspection, Non-Tender, No Pedal Edema Neurological: Alert, Oriented, CN II-XII Intact, Normal Cognition, No Motor/ Sensory Deficits Psychiatric: Normal Affect, Normal Mood Skin Exam: Warm, Dry, Intact, Normal Color, No Rash Course - Vital Signs Text/Narrative:: fingerstick glc 104 Last Recorded V/S: Last Vital Signs Temp 36.0 C 12/15/18 18:50 Pulse 77 12/15/18 18:50 Resp 18 12/15/18 18:50 BP 155/74 H 12/15/18 18:50 Pulse Ox 99 12/15/18 18:50 - Orders/Labs/Meds Meds: Medications Discontinued Medications Generic Name Dose Route Start Last Admin Trade Name Howie PRN Reason Stop Dose Admin Acetaminophen 1,000 mg 12/15/18 19:39 12/15/18 19:48 Tylenol Extra Strength PO 12/15/18 19:40 1,000 mg ONETIME ONE Administration Metoclopramide HCl 5 mg 12/15/18 19:38 12/15/18 19:47 Reglan IM 12/15/18 19:39 5 mg ONETIME ONE Administration Departure - Departure Time of Disposition: 20:04 Disposition: Home, Self-Care 01 Condition: Fair Clinical Impression: Nausea and vomiting Qualifiers: Vomiting type: unspecified Vomiting Intractability: non-intractable Qualified Code(s): R11.2 - Nausea with vomiting, unspecified - Discharge Information *PRESCRIPTION DRUG MONITORING PROGRAM REVIEWED*: No *COPY OF PRESCRIPTION DRUG MONITORING REPORT IN PATIENT [place]: No Instructions: Nausea and Vomiting, Adult, [id number] Referrals: Marry Recinos PA-C [Primary Care Provider] - Forms: ED Department Discharge Additional Instructions: Follow up with your provider to discuss if you may have diabetic gastroparesis and to discuss what can be done about it. Return here as needed.
== END 2018-12-15 20:10 | disposition home or self-care (01) ==
LOC: JP.ED 18:35
DX: R11.2 Nausea with vomiting, unspecified (principal); J45.909 Unspecified asthma, uncomplicated; I25.2 Old myocardial infarction; E11.9 Type 2 diabetes mellitus without complications; K21.9 Gastro-esophageal reflux disease without esophagitis; F31.9 Bipolar disorder, unspecified; F17.210 Nicotine dependence, cigarettes, uncomplicated; Z88.5 Allergy status to narcotic agent; Z88.8 Allergy status to other drugs, medicaments and biological substances; Z79.84 Long term (current) use of oral hypoglycemic drugs; Z79.899 Other long term (current) drug therapy
CPT/HCPCS: 96372; 99284; A9270; J2765; 99283